=== PATIENT | female | born 1965 | race Caucasian/White ===

== ENCOUNTER 2018-09-14 10:11 | Emergency (ER) | payer OTHER ==
[~2018-09-14] VITALS: Ht 165.1 cm; Wt 101.2 kg
[~2018-09-14 10:11] MED LIST: ACETAMINOPHEN-1 EAC1 PO; ASPIRIN325 PO; AZO URINARY TR1 EACH PO; BAYER CHEWABLE81 MG PO; CYMBALTA30 MG PO; DOXYCYCLINE 10100 MG PO; FEOSOL45 M1 PO; FLEXERIL PO; FORFIVO XL450 MG PO; GABAPENTIN 100100 MG PO; HYDROCHLOROTH12.5 MG; HYDROCODON-ACE1 EAC7; HYDROCODONE-AP1 EAC6 PO; HYDROCODONE-APA1 TA1 PO; HYOSCYAMINE; KLONOPIN0.5 MG PO; LASIX 20 MG TAB20 MG PO; LEVAQUIN 750 M750 MG PO; LEVBID PO; MEDROLDOSEPACK PO; MULTI VITAMIN1 EACH PO; OXYCODONE HCL 55 MG PO; PERCOCET 7.5-31 EACH PO; PERCOCET PO; PHENERGAN 25 MG25 M1 PO; POTASSIUM20 PO; PREDNISONE 10 M10 M1 PO; PRILOSEC20 MG PO; PROAIR HFA8.5 GM IH; SERTRALINE HCL50 MG PO; SYNTHROID; SYNTHROID175 MCG PO; TRIAMTERENE/HCT1 CA1 PO; TUSSIONEX PENN473 ML PO; VENTOLIN HFA 1818 GM INH; WELLBUTRIN 100100 MG PO; WELLBUTRIN XL300 MG PO; XANAX 0.25 MG0.25 MG PO; XARELTO10 MG PO; ZANAFLEX4 MG PO
[2018-09-14] MEDS ORDERED: ASPIR 8181 MG PO (10:43)
[2018-09-14] MEDS ORDERED: TRIAMCINOLONE A80 G2 TOP (10:43)
[2018-09-14] MEDS ORDERED: PHENERGAN 25 MG25 M1 PO (10:44)
[2018-09-14] MEDS ORDERED: BUTALB-APAP-CA1 EACH PO (10:44)
[2018-09-14] MEDS ORDERED: BRINTELLIX PO (10:45)
[2018-09-14] MEDS ORDERED: AMITRIPTYLINE H25 M2 PO (10:46)
[2018-09-14] MEDS ORDERED: WELLBUTRIN XL300 MG PO (10:46)
[2018-09-14] MEDS ORDERED: CLONAZEPAM 0.50.5 M1 PO (10:46)
[2018-09-14] MEDS ORDERED: ZOFRAN ODT4 MG PO (10:47)
[2018-09-14] MEDS ORDERED: OMEPRAZOLE40 MG PO (10:47)
[2018-09-14] MEDS ORDERED: BENTYL 10 MG CA10 M1 PO (10:47)
[2018-09-14] MEDS ORDERED: TYLENOL EXTRA500 MG PO (10:47)
[2018-09-14] MEDS ORDERED: NORCO 7.5-3251 EACH PO (10:48)
[2018-09-14] MEDS ORDERED: FLONASE 0.05%50 MCG NASAL (10:48)
[2018-09-14] MEDS ORDERED: MUCINEX DM ER1 EAC1 PO (10:48)
[2018-09-14 10:49] LABS: ABSOLUTE EOSINOPHILS 0.1 thou/uL (0.0-0.7); ABSOLUTE LYMPHOCYTES 1.8 thou/uL (0.8-5.3); ABSOLUTE MONOCYTES 0.5 thou/uL (0.0-1.2); BASOPHILS 0.7 %; EOSINOPHILS 1.7 %; HEMOGLOBIN 12.2 gm/dL (12.0-15.0); LYMPHOCYTES 23.6 %; MCHC 32.2 g/dL (28.0-37.0); MCV 80.9 fL (80.0-100.0); MONOCYTES 6.4 %; MPV 7.2 fl. (7.2-11.1); NUCLEATED RBCS 0 /100WBC; PLATELET COUNT* 268 thou/uL (150-400); POLYS 67.6 %; RDW-CV 15.7 % (10.5-14.5); WBC 7.4 thou/uL (4.0-11.0)
[2018-09-14] MEDS ORDERED: PROAIR RESPICL90 MCG INH (10:51)
[2018-09-14] MEDS ORDERED: SLOW FE 160MG160 MG PO (10:51)
[2018-09-14] MEDS ORDERED: B12INJ IM (10:52)
[2018-09-14] MEDS ORDERED: CENTRUM SILVER1 EAC4 PO (10:52)
[2018-09-14] MEDS ORDERED: VITAMIN D1000 UNI1 PO (10:52)
[2018-09-14] MEDS ORDERED: HYDROCHLOROTHIA25 M2 PO (10:54)
[2018-09-14] MEDS ORDERED: KLOR-CON 1010 MEQ PO (10:54)
[2018-09-14] MEDS ORDERED: GABAPENTIN100 MG PO (10:54)
[2018-09-14] MEDS ORDERED: CYCLOBENZAPRINE5 MG PO (10:55)
[2018-09-14] MEDS ORDERED: SYNTHROID200 MCG PO (10:56)
[2018-09-14] MEDS ORDERED: SINGULAIR 10 MG10 M1 PO (10:56)
[2018-09-14 11:08] LABS: ANION GAP 7 mmol/L (7-16); BUN 17 mg/dL (7-18); CALCIUM 8.2 mg/dL (8.5-10.1); CHLORIDE 103 mmol/L (98-107); CO2 30 mmol/L (21-32); CREATININE 1.1 mg/dL (0.6-1.3); GLUCOSE 78 mg/dL (70-99); POTASSIUM 3.1 mmol/L (3.5-5.1); SODIUM 140 mmol/L (136-145)
[2018-09-14 11:10] LABS: APTT 29.2 Seconds (25.0-31.3); PROTIME 9.8 Seconds (9.20-11.50)
[2018-09-14 11:27] LABS: ALBUMIN 2.8 g/dL (3.4-5.0); ALKALINE PHOSPHATASE 86 U/L (46-116); LIPASE 76 U/L (73-393); MAGNESIUM 2.1 mg/dL (1.8-2.4); NT-PRO BRAIN NAT PEPTIDE 249 pg/mL (<300); SGOT 19 U/L (15-37); SGPT 24 U/L (30-65); TOTAL BILIRUBIN 0.3 mg/dL (<0.1-1.0); TOTAL PROTEIN 6.7 g/dL (6.4-8.2); TROPONIN-I LEVEL <0.06 ng/mL (<0.06)
[2018-09-14 11:37] VITALS: BP 129/70
--- NOTE | 2018-09-15 11:08 | EKG ---
[place] [address] ELECTROCARDIOGRAM REPORT Name: BEAU SMITH Room: [facility]#: [id number] Admission: 09/14/18 Attend Phys: Discharge: 09/14/18 Date of : 65 Report #: [id number] THIS REPORT FOR: //name// [facility] ED Test Date: 2018-09-14 Test Time: 10:27:30 Pat Name: BEAU SMITH Department: Room: Gender: F [employer] Driver: Daniel CALDERON : 1965 Requested By: Pablo Winn Order Number: [id number] MD: Charli Howard Measurements Intervals Orient Rate: 70 P: 42 MT: 152 QRS: 65 QRSD: 98 T: 53 QT: 405 QTc: 437 Interpretive Statements Sinus rhythm Ventricular premature complex Baseline wander in lead(s) V3 Compared to ECG 01/06/2016 14:54:41 Ventricular premature complex(es) now present ST (T wave) deviation no longer present Electronically Signed On 09-15-2018 11:08:34 [employer] by Charli Howard [email or web address] <ELECTRONICALLY SIGNED> By: Charli Howard MD, FAC 09/15/18 1108 1027 1027 Charli Howard MD, [facility] /EPI
== END 2018-09-14 11:38 | disposition home or self-care (01) ==
LOC: M.ERS 10:11
PROVIDERS: Family Medicine
DX: R07.89 Other chest pain (principal); E87.6 Hypokalemia; M79.7 Fibromyalgia; Z88.1 Allergy status to other antibiotic agents; Z88.0 Allergy status to penicillin; Z88.2 Allergy status to sulfonamides; Z90.710 Acquired absence of both cervix and uterus; Z90.49 Acquired absence of other specified parts of digestive tract